=== PATIENT | male | born 1965 | race Hispanic/Latino ===

== ENCOUNTER → 2024-01-04 | Emergency (ER) | payer OTHER ==
[~2024-01-04] MED LIST: ALPRAZOLAM 0.5 MG TABLET ONE
--- OUTSIDE RECORDS SUMMARY | 2024-01-04 09:22 | XMS REPORT | Continuity of Care Document ---
Author Name Unknown Address [address] [place] [address] [facility] Address [address] [place] [address] Care Team Providers Care Pallet Assembler Name Role Phone PCP, PATIENT DOES NOT HAVE A Primary Care Physic anne marie Unavailable Felecia Singh Attending Clinician Unavailable Jahaira Spain PA-C Attending Clinician [phone] Unknown, Attending Attending Clinician Unavailab JAHAIRA Francisco Attending Clinician Unavailable Doctor Unassigned, [place] Attending Clinician U navailable Allergies, Adverse Reactions, Alerts Allergy Name Allergy Type Status Severity Reaction(s) Onset Date Inactive Date Treating Clinician Comments Source NO KNOWN ALLERGIE S Drug Class Active [facility] Social History Social Habit Start Date Stop Date Quantity Comments Source [facility] Sex Ass[facility] At 1965 00:00:00 1965 00:00:00 [facility] Smoking Status Start Date Stop Date Source Tobacco smoking consumption unknown [facility] Vital Signs Vital Name Observation Time Observation Value Comments S mynor Systolic blood pressure 2023-11-07 01:54:00 167 mm[Hg] [facility] Diastolic blood pressure 2023-11-07 01:54:00 94 mm[Hg] [facility] Heart rate 2023-11-07 01:53:00 80 /min [facility] Body temperature 2023-11-07 01:53:00 36.56 Leta [facility] Respiratory rate 2023-11-07 01:53:00 14 /min [facility] Body height 2023-11-07 01:53:00 170.2 cm [facility] Body weight 2023-11-07 01:53:00 88.587 kg [facility] BMI 2023-11-07 01:53:00 30.59 kg/m2 [facility] Oxygen saturation in Arterial blood by Pulse oximetry 2023-11-07 01:53:00 96 /min [facility] Procedures Procedure Date / Time Performed Performing Clinicia n Source CONSENT/REFUSAL FOR DIAGNOSIS AND TREATMENT 2023-11-07 01:48:05 Doctor Unassigned, [place] [facility] Encounters Start Date/Time End Date/Time Encounter Type Admission Type Attending [facility] Care Facility Care Department Encounter ID Source 2023-12-03 07:41:01 Outpatient Samantha Theodorepaojavier [facility] [id number] [facility] 2023-11-18 14:28:02 Outpatient Felecia Singh [facility] [id number] [facility] 2023-11-06 19:40:00 2023-11-06 20:16:49 Urgent Care Jahaira Spain Unknown, Attending COUNTS INCLUDE 234 BEDS AT THE [facility] [id number] General acute hospital 2023-11-06 19:40:00 2023-11-06 20:16:49 Outpatient JAHAIRA [facility] [id number] General acute hospital 2023-11-06 00:00:00 2023-11-06 00:00:00 Orders Only Doctor Unassigned, [place] [id number] General acute hospital
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
[2024-01-04 10:07] VITALS: BP 142/79; TEMP 98.1; O2SAT 96
--- NOTE | 2024-01-06 15:05 | EKG ---
Test Date: 2024-01-04 Test Time: 09:32:21 Advertiser: [employer] MEASUREMENT RESULTS: Intervals: Rate: 85 SC: 128 QRSD: 86 QT: 352 QTc: 418 [place]: P: 24 SC: 128 QRS: 14 T: 13 INTERPRETIVE STATEMENTS: Normal sinus rhythm Minimal voltage criteria for LVH, may be normal variant Borderline ECG Compared to ECG 12/20/2023 00:11:25 Left ventricular hypertrophy now present T-wave abnormality no longer present Electronically Signed On 01-06-24 15:00:28 PRODUCTION PLANNING SUPERVISOR by Rigoberto Espinoza
== END ==
LOC: ER 09:19
DX: F41.0 Panic disorder [episodic paroxysmal anxiety] (principal); I10 Essential (primary) hypertension
CPT/HCPCS: 93005